=== PATIENT | male | born 1995 | race Caucasian/White ===

== ENCOUNTER 2025-01-16 13:44 | Emergency (ER) | payer OTHER, SELFPAY ==
--- NOTE | 2025-01-16 13:47 | ED_ITS ---
HPI - URI/Sore Throat General Chief Complaint: Upper Respiratory Infection Stated Complaint: SORE THROAT Time Seen by Provider: 01/16/25 13:47 Source: patient Mode of arrival: ambulatory Limitations: no limitations History of Present Illness HPI Narrative: Jay is a 29-year-old male patient presenting to the clinic today with complaints sore throat and ear pain bilaterally. He reports symptoms started 4- 5 days ago. No known fevers, chills, body aches. Denies any chest pain shortness of breath. Related Data Allergies Allergy/AdvReac Type Severity Reaction Status Date / Time No Known Allergies Allergy Mild Verified 01/16/25 14:04 Review of Systems Review of Systems: Pertinent positives per HPI. Patient denies any fever, chills, rash, headache, visual changes, dizziness, cough, shortness of breath, chest pain, palpitations, nausea, vomiting, diarrhea, constipation, abdominal pain, or any urinary issues. PMFSH Comments At the time of my signature, I reviewed and agree with the nursing past medical, surgical, social, and family history. There is no relevant family history pertinent to the patient complaint. Exam Narrative: General: Well-developed, well nourished, in no apparent distress Head: Normocephalic, atraumatic Eyes: Pupils equally round and reactive to light bilaterally, EOM intact, sclera and conjunctive clear, no discharge, lids normal Ears: Right TMs intact and clear, left TM intact, bulging, red, ear canals clear, no drainage, grossly hearing normal. Nose: Nares patent, clear nasal discharge, no inflammation, no sinus tenderness. Mouth: Oral pharynx red with mild tonsillar enlargement without lesions or masses, good dentition, MMM. Neck: Supple, trachea midline, no enlargement of anterior or posterior cervical nodes, no thyroid masses or goiter palpable. Cardio: Regular rate and rhythm, s1 and s2 normal, no murmur appreciated. Resp: Clear to auscultation bilaterally, no rhonchi, rales, wheezing or rubs Course Course Emergency Course: Portions of this record may have been created with voice recognition software. Level of Care: Express Care Visit Vital Signs Vital signs: Vital Signs Temperature 36.6 C 01/16/25 13:53 Pulse Rate 63 01/16/25 13:53 Respiratory Rate 16 01/16/25 13:53 Blood Pressure 129/96 H 01/16/25 13:53 Pulse Oximetry 99 01/16/25 13:53 Oxygen Delivery Room Air 01/16/25 13:53 Temperature 36.6 C 01/16/25 13:53 Pulse Rate 63 01/16/25 13:53 Respiratory Rate 16 01/16/25 13:53 Blood Pressure 129/96 H 01/16/25 13:53 Pulse Oximetry 99 01/16/25 13:53 Oxygen Delivery Room Air 01/16/25 13:53 Vital signs reviewed MDM - URI/Sore Throat MDM Narrative Medical decision making narrative: At the time of visit patient is resting comfortably on the exam table. Patient appears to be nontoxic. Labs: Strep test was negative in the clinic today. Plan: I suspect patient has left otitis media with pharyngitis. Prescription for amoxicillin was sent to the pharmacy. Supportive measures were discussed with the patient and they voiced understanding discharge instructions and agrees to treatment plan. Return precautions reviewed Differential Diagnosis Differential diagnosis: Likely upper respiratory infection, otitis media, sinusitis, viral infection, bronchitis, influenza, pharyngitis and other (COVID) Lab Data Labs: Lab Results 01/16/25 Range/Units 13:54 POC Grp A Strep Screen Negative (Negative) Discharge Plan Discharge Clinical Impression: Pharyngitis Qualifiers: Pharyngitis/tonsillitis etiology: unspecified etiology Qualified Code(s): J02.9 - Acute pharyngitis, unspecified Otitis media Qualifiers: Otitis media type: suppurative Chronicity: acute Laterality: left Recurrence: non-recurrent Spontaneous tympanic membrane rupture: without spontaneous rupture Qualified Code(s): H66.002 - Acute suppurative otitis media without spontaneous rupture of ear drum, left ear Patient Disposition: Home Condition: Stable Instructions: Antibiotic Form, Pharyngitis (ED), Ear Infection (ED) Additional Instructions: Take prescription medications only as prescribed-amoxicillin Increase fluids and stay well hydrated Tylenol/motrin for pain/fever Flonase and OTC antihistamines as directed Vicks vapor rub to open sinuses Sinus rinses for congestion Cepacol spray, cough drops, throat lozenges, warm tea with honey/lemon, gargle salt water to soothe throat BRAT diet for diarrhea Clear liquids x 24 hours then advance as tolerated for nausea/vomiting Go to the ED if you develop a worsening in your condition- high fever not controlled by Tylenol or Motrin, dehydration, weakness, lethargy, shortness of breath, or chest pain. Follow up with your PCP in 3-5 days if symptoms persist. Patient Language: Beninese Prescriptions: New amoxicillin 875 mg tablet 875 mg PO Q12H 10 Days Qty: 20 0RF Follow-up/Referrals: María,DO Jerome [Primary Care Provider] - Time of Disposition: 14:09 Quality NIHSS Nursing Documentation ED NIHSS nursing documentation: reviewed/agree
[2025-01-16 13:53] VITALS: BP 129/96; PULSE 63; RESP 16; TEMP 36.6; O2SAT 99
[2025-01-16 14:09] LABS: EDSTREPNEGPOS1 Negative (Negative)
== END 2025-01-16 14:13 | disposition home or self-care (01) ==
PROVIDERS: Emergency Provider Nurse Practitioner Family; PCP Student in an Organized Health Care Education/Training Program
DX: J02.9 Acute pharyngitis, unspecified (principal); H66.002 Acute suppurative otitis media without spontaneous rupture of ear drum, left ear
CPT/HCPCS: 87880; 99203; G0463